=== PATIENT | male | born 1955 | race African-American/Black ===

== ENCOUNTER 2017-03-04 20:14 | Emergency (ER) | payer BC | END 2017-03-04 21:00 | disposition home or self-care (01) | LOC: ER 20:14 | DX: M54.30 Sciatica, unspecified side (principal); K21.9 Gastro-esophageal reflux disease without esophagitis; F17.200 Nicotine dependence, unspecified, uncomplicated | CPT/HCPCS: 96372; 99283; J1170; J2405 ==